=== PATIENT | male | born 1945 | race Caucasian/White ===

== ENCOUNTER 2017-06-17 18:00 | Emergency (ER) | payer MEDICARE ==
[~2017-06-17] VITALS: Ht 165.1 cm; Wt 95.7 kg
[2017-06-17] MEDS ORDERED: Solu-MEDROL 125mg Inj IVP ONE (18:15)
[2017-06-17 19:06] VITALS: BP 118/78
[2017-06-17 19:14] LABS: HEMATOCRIT 26.8 % (42.0-52.0); HEMOGLOBIN 8.7 G/DL (14.2-18.0); MEAN CORPUSCULAR VOLUME 88 FL (80-99); PLATELET COUNT 87 K/UL (150-450); RED BLOOD COUNT 3.06 M/UL (4.70-6.10); RED CELL DISTRIBUTION WIDTH 16.6 % (11.6-14.8); WHITE BLOOD COUNT 6.4 K/UL (4.8-10.8)
[2017-06-17 19:15] LABS: BASOPHILS % (AUTO) 1.1 % (0.0-2.0); EOSINOPHILS % (AUTO) 0.9 % (0.0-3.0); LYMPHOCYTES % (AUTO) 23.9 % (20.0-45.0); MONOCYTES % (AUTO) 8.1 % (1.0-10.0); NEUTROPHILS % (AUTO) 66.1 % (45.0-75.0)
[2017-06-17 19:31] LABS: ANION GAP 10 mmol/L (5-15); BLOOD UREA NITROGEN 77 mg/dL (7-18); CALCIUM 9.3 MG/DL (8.5-10.1); CARBON DIOXIDE 27 MMOL/L (21-32); CHLORIDE 98 MMOL/L (98-107); CREATININE 1.7 MG/DL (0.55-1.30); POTASSIUM 4.8 MMOL/L (3.5-5.1); SODIUM 135 MMOL/L (136-145)
[2017-06-17 19:37] LABS: ALANINE AMINOTRANSFERASE 24 U/L (12-78); ALBUMIN 3.4 G/DL (3.4-5.0); ALBUMIN/GLOBULIN RATIO 0.8 (1.0-2.7); ALKALINE PHOSPHATASE 141 U/L (46-116); ASPARTATE AMINO TRANSFERASE 38 U/L (15-37); BILIRUBIN,TOTAL 0.7 MG/DL (0.2-1.0)
[2017-06-17 19:46] LABS: APPEARANCE,URINE CLEAR; BILIRUBIN, URINE NEGATIVE (NEGATIVE); COLOR,URINE PALE YELLOW; GLUCOSE, URINE (UA) NEGATIVE (NEGATIVE); KETONES,URINE NEGATIVE (NEGATIVE); LEUKOCYTE ESTERASE ,URINE 1+ (NEGATIVE); NITRITE,URINE NEGATIVE (NEGATIVE); PH,URINE 5 (4.5-8.0); PROTEIN,URINE NEGATIVE (NEGATIVE); UROBILINOGEN,URINE NORMAL MG/DL (0.0-1.0)
--- NOTE | 2017-06-17 19:53 | Emergency Room Report ---
History of Present Illness General Chief Complaint: Dyspnea/Respdistress Source: Patient, EMS Present Illness HPI Patient is a 71-year-old male who presented after increased difficulty breathing gradual onset. Patient prior history of tracheostomy placement. He was noted to have increased difficulty breathing worse with supine position. He had gradual onset of swelling to his lower extremities. Patient reports taking diuretics. He had been given a breathing treatment via his tracheostomy. Allergies: Coded Allergies: No Known Allergies (Unverified , 06/17/17) Patient History Reviewed Nursing Documentation: PMH: Agreed; PSxH: Agreed Review of Systems All Other Systems: limited - by mental status Physical Exam Vital Signs Date Time Temp Pulse Resp B/P (MAP) Pulse Ox O2 Delivery O2 Flow Rate FiO2 06/17/17 17:55 97.3 100 22 115/67 100 Simple Mask 97.3 06/17/17 19:09 6.0 30 Sp02 EP Interpretation: reviewed, normal General Appearance: GCS 15, obese, Chronically Ill Head: atraumatic ENT: normal ENT inspection Neck: normal inspection, tracheotomy Respiratory: speaking full sentences, wheezing Cardiovascular #1: tachycardia, edema - bikla Gastrointestinal: normal inspection, normal bowel sounds, non tender, soft, no guarding, no hernia Genitourinary: no CVA tenderness Musculoskeletal: normal inspection, back normal, normal range of motion Neurologic: normal inspection, alert, oriented x3, responsive, senior administrative services officer III-XII nml as tested, speech normal, motor weakness Psychiatric: normal inspection, judgement/insight normal, mood/affect normal Skin: other - chronic venous stasis changes Medical Decision Making Diagnostic Impression: Primary Impression: Acute exacerbation of CHF (congestive heart failure) Additional Impression: Chronic pulmonary disease ER Course Patient presented for shortness of breath.Differential included but was not limited to anemia, pneumonia, pneumothorax, myocardial infarction, pericardial effusion, congestive heart failure, acidosisBecause of complexity of patient's case laboratory testing and imaging studies were ordered.Chest x-ray one view interpreted by me showed cardiomegaly with previous sternotomy and pacemaker placement. The patient was given breathing treatment as well as IV Solu-Medrol and IV Lasix. The patient was noted to have some improvement.Laboratory testing was notable for elevated BUN 77 creatinine 1.7. BNP was noted to be markedly elevated. The patient was noted be moderately tachycardic. He was started on supplemental oxygen. Via trach collar. Patient was given breathing treatments with DuoNeb. Patient was noted to have been previously treated at [facility]. [facility] transfer center regarding possible transfer and they stated that they have no beds available. The patient was advised that he had congestive heart failure and had an oxygen requirement. The patient's family members stated that they wanted to take the patient directly to [facility]. The patient left the hospital AGAINST MEDICAL ADVICE. Labs Test 06/17/17 19:00 06/17/17 19:30 White Blood Count 6.4 K/UL (4.8-10.8) Red Blood Count 3.06 M/UL (4.70-6.10) Hemoglobin 8.7 G/DL (14.2-18.0) Hematocrit 26.8 % (42.0-52.0) Mean Corpuscular Volume 88 FL (80-99) Mean Corpuscular Hemoglobin 28.5 PG (27.0-31.0) Mean Corpuscular Hemoglobin Concent 32.5 G/DL (32.0-36.0) Red Cell Distribution Width 16.6 % (11.6-14.8) Platelet Count 87 K/UL (150-450) Mean Platelet Volume 7.8 FL (6.5-10.1) Neutrophils (%) (Auto) 66.1 % (45.0-75.0) Lymphocytes (%) (Auto) 23.9 % (20.0-45.0) Monocytes (%) (Auto) 8.1 % (1.0-10.0) Eosinophils (%) (Auto) 0.9 % (0.0-3.0) Basophils (%) (Auto) 1.1 % (0.0-2.0) Sodium Level 135 MMOL/L (136-145) Potassium Level 4.8 MMOL/L (3.5-5.1) Chloride Level 98 MMOL/L (98-107) Carbon Dioxide Level 27 MMOL/L (21-32) Anion Gap 10 mmol/L (5-15) Blood Urea Nitrogen 77 mg/dL (7-18) Creatinine 1.7 MG/DL (0.55-1.30) Estimat Glomerular Filtration Rate mL/min (>60) Glucose Level 177 MG/DL (74-106) Calcium Level 9.3 MG/DL (8.5-10.1) Total Bilirubin 0.7 MG/DL (0.2-1.0) Aspartate Amino Transf (AST/SGOT) 38 U/L (15-37) Alanine Aminotransferase (ALT/SGPT) 24 U/L (12-78) Alkaline Phosphatase 141 U/L (46-116) Troponin I 0.043 ng/mL (0.000-0.056) Pro-B-Type Natriuretic Peptide 2074 pg/mL (0-125) Total Protein 7.8 G/DL (6.4-8.2) Albumin 3.4 G/DL (3.4-5.0) Globulin 4.4 g/dL Albumin/Globulin Ratio 0.8 (1.0-2.7) Urine Color Pale yellow Urine Appearance Clear Urine pH 5 (4.5-8.0) Urine Specific Peterson 1.010 (1.005-1.035) Urine Protein Negative (NEGATIVE) Urine Glucose (UA) Negative (NEGATIVE) Urine Ketones Negative (NEGATIVE) Urine Occult Blood Negative (NEGATIVE) Urine Nitrite Negative (NEGATIVE) Urine Bilirubin Negative (NEGATIVE) Urine Urobilinogen Normal MG/DL (0.0-1.0) Urine Leukocyte Esterase 1+ (NEGATIVE) Urine RBC 0-2 /HPF (0 - 0) Urine WBC 0-2 /HPF (0 - 0) Urine Squamous Epithelial Cells Occasional /LPF Urine Bacteria Occasional /HPF (NONE) EKG Diagnostic Results Rate: tachycardiac Rhythm: NSR ST Segments: no acute changes Last Vital Signs Date Time Temp Pulse Resp B/P (MAP) Pulse Ox O2 Delivery O2 Flow Rate FiO2 06/17/17 19:09 Trach Collar 6.0 30 06/17/17 19:09 100 06/17/17 19:06 90 17 06/17/17 19:06 118/78 06/17/17 17:55 97.3 97.3 Status: unchanged Disposition: AGAINST MEDICAL ADVICE Condition: Serious Referrals: NOT CHOSEN IPA/,REFERRING (PCP) [place] Juan Jun 17, 2017 19:53
[2017-06-17 21:00] VITALS: BP 109/69
[2017-06-17 21:45] VITALS: BP 109/69
--- NOTE | 2017-06-18 10:03 | Diagnostic Imaging Report ---
Indication: Shortness of breath Technique: One view of the chest Comparison: none Findings: The heart is markedly enlarged. The lungs and pleural spaces are grossly clear. There is a left chest unifocal pacemaker. There is evidence of prior CABG. There is a tracheostomy Impression: Marked cardiomegaly No definite acute cardiopulmonary process Findings as noted
--- NOTE | 2017-06-18 16:04 | Cardiology Report ---
APPROVED REPORT EKG Measurement Heart [id number] A. Fib.with PVCs. Right bundle branch block Abnormal ECG
== END 2017-06-17 21:45 | disposition left against medical advice (07) ==
LOC: EDBD 18:00 → EMR 18:05 → EDBEDREQSVC 19:46 → EDBEDREQTM 19:46 → EMR 21:45 → CANBEDREQ 22:07
DX: I50.9 Heart failure, unspecified (principal); J98.4 Other disorders of lung; Z93.0 Tracheostomy status
CPT/HCPCS: 36415; 71045; 80053; 81003; 82962; 83880; 84484; 85025; 87040; 93005; 94760; 96374; 96375; 99284; J1940; J2930